=== PATIENT | female | born 1970 | race Caucasian/White ===

== ENCOUNTER 2017-06-04 14:26 | Outpatient (CLI) | payer OTHER | END 2017-06-04 14:27 | disposition home or self-care (01) | LOC: DI 14:26 | PROVIDERS: ATTEND Family Medicine | DX: Z53.9 Procedure and treatment not carried out, unspecified reason (principal) ==

== ENCOUNTER 2017-06-04 15:12 | Outpatient (CLI) | payer OTHER ==
--- NOTE | 2017-06-05 02:32 | MRI Report ---
EXAM: MRI CERVICAL SPINE WITHOUT CONTRAST EXAM DATE: 06/04/2017 03:26 PM. CLINICAL HISTORY: Right-sided radiculopathy. COMPARISONS: None. TECHNIQUE: Multiplanar, multisequence T1-weighted and fluid-sensitive sequences of the cervical spine without contrast. Other: None. FINDINGS: Neurologic Structures: The visualized posterior fossa structures are unremarkable. No signal abnormal ity in the visualized spinal cord. Alignment: Degenerative retrolisthesis is present at C5-C6 measuring 12 mm. Bone Marrow: No gross fractures or bone lesions. No marrow edema. Interspace Levels/Facets: C1-C2: Unremarkable. C2-C3: Unremarkable. C3-C4: Unremarkable. C4-C5: Unremarkable. C5-C6: There is a mild disk bulge resulting in mild spinal canal stenosis without impingement of the spinal cord. The foramina are widely patent. C6-C7: A mild disk bulge results in mild spinal canal stenosis without impingement of the spinal cord . The foramina are patent. C7-T1: Unremarkable. Musculature: Normal. No edema or fatty atrophy. Other: The paravertebral and prevertebral soft tissues are normal. IMPRESSION: 1. Normal cervical spinal cord signal intensity without impingement. 2. Mild disk bulging at C5-C6 and C6-C7 resulting in mild spinal canal stenosis. 3. No foraminal narrowing identified in the cervical spine. [facility] Referring Provider Line: [phone] SITE ID: [id number]
--- NOTE | 2017-06-05 02:45 | MRI Report ---
EXAM: MRI THORACIC SPINE WITHOUT CONTRAST EXAM DATE: 06/04/2017 03:39 PM. CLINICAL HISTORY: Back pain. COMPARISONS: None. TECHNIQUE: Multiplanar, multisequence T1-weighted and fluid-sensitive sequences of the thoracic spine from C7 to L1 without contrast. Other: None. FINDINGS: Spinal Cord: No signal abnormality in the visualized spinal cord. Alignment: There is no spondylolisthesis. Bone Marrow: No gross fractures or bone lesion. No bone marrow edema. Disk Levels/Facets: Axial images were acquired from T4-T12. Multiple small disk bulges/herniations ar e present from T4-T5 through T10-T11 resulting in mild spinal canal stenosis. However, there is no im pingement of the spinal cord. The foramina are patent at all thoracic levels. Musculature: Normal. No edema or fatty atrophy. Other: The visualized lungs, mediastinum, and abdominal cavity are unremarkable. IMPRESSION: 1. Normal thoracic spinal cord signal intensity without impingement. 2. Mild multilevel degenerative disk changes without high-grade spinal canal stenosis. 3. No foraminal narrowing identified. [facility] Referring Provider Line: [phone] SITE ID: [id number]
--- NOTE | 2017-06-05 03:20 | MRI Report ---
EXAM: MRI LUMBAR SPINE WITHOUT CONTRAST EXAM DATE: 06/04/2017 04:08 PM. CLINICAL HISTORY: Back pain. COMPARISON: None. TECHNIQUE: Multiplanar, multisequence T1-weighted and fluid-sensitive sequences of the lumbar spine f rom T12 to S1 without contrast. Other: None. FINDINGS: Spinal Cord: The conus terminates at L1. The conus medullaris and cauda equina are unremarkable. Alignment: Retrolisthesis at L3-L4 measures 12 mm. Bone Marrow: Five exv-[id number] lumbar vertebral bodies are assumed. No gross fractures or bone les ions. No bone marrow edema. Disk Levels/Facets: T12-L1: Unremarkable on sagittal images. L1-L2: Unremarkable. L2-L3: Unremarkable. L3-L4: A disk bulge results in mild bilateral foraminal narrowing and mild spinal canal stenosis. L4-L5: A disk bulge and mild bilateral facet arthropathy result in mild bilateral foraminal narrowing and mild spinal canal stenosis. L5-S1: Unremarkable. Musculature: Normal. No edema or fatty atrophy. Other: The partially visualized retroperitoneum is unremarkable. IMPRESSION: 1. Normal conus medullaris and cauda equina. 2. Mild degenerative changes at L3-L4 and L4-L5 without high-grade spinal canal or foramina stenosis. Comment: The following findings are so common in adults without low back pain that while we report th eir presence, they must be interpreted with caution and in the context of the clinical situation. (Re martha Trujillo et al, Spine 2001) Prevalence of findings in patients without low back pain: Disk degeneration (any evidence): 92% Disk desiccation/T2 signal loss: 83% Disk height loss: 56% Disk bulge: 64% Disk protrusion: 32% Annular tear/high intensity zone: 38% [facility] Referring Provider Line: [phone] SITE ID: [id number]
== END 2017-06-04 15:13 | disposition home or self-care (01) ==
LOC: DI 15:12
PROVIDERS: ATTEND Family Medicine
DX: M50.322 Other cervical disc degeneration at C5-C6 level (principal); M43.12 Spondylolisthesis, cervical region; M51.34 Other intervertebral disc degeneration, thoracic region; M51.24 Other intervertebral disc displacement, thoracic region; M47.896 Other spondylosis, lumbar region; M51.36 Other intervertebral disc degeneration, lumbar region
CPT/HCPCS: 72141; 72146; 72148

== ENCOUNTER 2019-06-22 12:50 | Outpatient (CLI) | payer OTHER ==
[2019-06-22] MEDS ORDERED: GADOBUTROL 7.5 MMOL/7.5 ML VIAL ONE (15:14)
[2019-06-22] MEDS ORDERED: GADOBUTROL 7.5 MMOL/7.5 ML VIAL IVP ONE (15:42)
--- NOTE | 2019-06-23 12:33 | MRI Report ---
Reason: PAIN IN UNSPECIFIED JOINT Procedure Date: 06/22/2019 Accession Number: [id number] / [id number] Procedure: MRI - Hand LT W/WO CPT Code: Final Report FULL RESULT: EXAM: LEFT HAND MRI WITHOUT AND WITH CONTRAST EXAM DATE: 06/22/2019 03:37 PM. CLINICAL HISTORY: Joint pain. Shoulder pain. COMPARISON: None. TECHNIQUE: Multiplanar, multisequence T1-weighted and fluid-sensitive sequences of the hand before and after administration of intravenous contrast. The following sequences were acquired: Axial T1-weighted, axial T2-weighted fat-suppressed, coronal T1-weighted fat-suppressed, coronal T1-weighted, and sagittal STIR. After intravenous administration of contrast, coronal and axial T1-weighted fat-suppressed images were acquired. IV contrast: 6 mL Gadavist. OTHER: Note that although the wrist examination was ordered as well, the wrist was included as part of the hand [id number] and the patient should only be charged for one exam.. FINDINGS: As a courtesy, the right hand/wrist was also included in this exam. Bones: No fractures or marrow edema. A periarticular cyst is seen within the distal left third metacarpal. It measures 8.0 cm. Another 6 mm periarticular cyst is in the distal left scaphoid. No erosions. Cartilage: The articular cartilage is unremarkable. Ligaments: The visualized collateral ligaments are intact. Tendons: The flexor and extensor tendons are unremarkable. Musculature: No edema or fatty atrophy. Other: Small bilateral distal radial ulnar joint effusions are present. This is associated with mild synovitis on the left. The subcutaneous tissues are unremarkable. No abscess or cellulitis. IMPRESSION: 1. Two bony periarticular cysts, one area of joint effusion in the left hand/wrist are nonspecific as yet. Early inflammatory arthritis can have this appearance. [facility]
== END 2019-06-22 12:51 | disposition home or self-care (01) ==
LOC: DI 12:50
PROVIDERS: ATTEND Family Medicine
DX: M25.442 Effusion, left hand (principal); M85.642 Other cyst of bone, left hand; M65.9 Synovitis and tenosynovitis, unspecified
CPT/HCPCS: 73220; A9585